=== PATIENT | male | born 1990 | race Caucasian/White ===

== ENCOUNTER 2021-01-19 04:39 | Emergency (ER) | payer OTHER ==
[~2021-01-19] VITALS: Ht 177.8 cm; Wt 90.0 kg
[2021-01-19] MEDS ORDERED: MAGNESIUM/ALUMINUM HYDROXIDE/SIMETHICONE 30ML UDC PO STA (05:25)
[2021-01-19] MEDS ORDERED: ONDANSETRON 4MG ODT PO ONE (05:30)
[2021-01-19 06:10] LABS: BASOPHILS % 0.5 % (0.0-2.0); EOSINOPHILS % 1.2 % (0.0-5.0); HEMATOCRIT. 45.1 % (42.0-52.0); HEMOGLOBIN. 15.3 g/dL (14.0-18.0); LYMPHOCYTES % 18.1 % (20.0-50.0); MEAN CORPUSCULAR HEMOGLOBIN 27.2 pg (28.0-32.0); MEAN PLATELET VOLUME 8.6 fl (7.4-10.4); MONOCYTES % 5.5 % (2.0-8.0); NEUTROPHILS % 74.7 % (40.0-76.0); PLATELET 207 x1000/uL (130-400); RED BLOOD CELL COUNT 5.64 mill/uL (4.7-6.1); RED CELL DISTRIBUTION WIDTH 13.1 % (11.6-14.6)
[2021-01-19 06:12] LABS: CHLORIDE 104 mEq/L (98-107)
[2021-01-19] MEDS ORDERED: ONDA4TAB5 MT (10:57)
[2021-01-19] MEDS ORDERED: IBUP-2029 MT (10:57)
[2021-01-19 11:40] VITALS: BP 126/74
== END 2021-01-19 12:04 | disposition home or self-care (01) ==
LOC: ER 04:39
DX: K80.20 Calculus of gallbladder without cholecystitis without obstruction (principal); I10 Essential (primary) hypertension; F41.9 Anxiety disorder, unspecified
CPT/HCPCS: 36415; 76705; 80053; 83690; 85025; 99284; Q0162

== ENCOUNTER 2024-05-05 02:13 | Emergency (ER) | payer OTHER ==
[~2024-05-05] VITALS: Ht 175.3 cm; Wt 78.0 kg
[~2024-05-05 02:13] MED LIST: IBUP-2029 MT; ONDA4TAB5 MT
[2024-05-05 02:36] VITALS: TEMP 98.5; O2SAT 99
[2024-05-05 02:59] LABS: BASOPHILS % 0.8 % (0.0-2.0); EOSINOPHILS % 2.3 % (0.0-5.0); HEMATOCRIT. 44.5 % (42.0-52.0); HEMOGLOBIN. 14.8 g/dL (14.0-18.0); LYMPHOCYTES % 28.2 % (20.0-50.0); MEAN CORPUSCULAR HEMOGLOBIN 27.2 pg (28.0-32.0); MEAN CORPUSCULAR HGB CONC 33.3 g/dL (31.0-37.0); MEAN CORPUSCULAR VOLUME 81.7 fL (80.0-94.0); MEAN PLATELET VOLUME 8.4 fl (7.4-10.4); MONOCYTES % 6.4 % (2.0-8.0); NEUTROPHILS % 62.3 % (40.0-76.0); PLATELET 198 x1000/uL (130-400); RED BLOOD CELL COUNT 5.45 mill/uL (4.7-6.1); RED CELL DISTRIBUTION WIDTH 13.6 % (11.6-14.6); WHITE BLOOD COUNT 6.8 x1000/uL (4.5-11.0)
[2024-05-05 03:04] LABS: CHLORIDE 107 mEq/L (98-107); POTASSIUM 3.4 mEq/L (3.5-5.1); SODIUM 138 mEq/L (136-145)
[2024-05-05 03:05] LABS: CALCIUM 9.6 mg/dL (8.7-10.4); CARBON DIOXIDE 23 mEq/L (21-32)
[2024-05-05 03:10] LABS: CREATININE 1.1 mg/dL (0.6-1.3); GLUCOSE 103 mg/dL (70-105); UREA NITROGEN BLOOD 17 mg/dL (9-23)
[2024-05-05 03:12] LABS: ALANINE AMINOTRANSFERASE 23 IU/L (10-49); ALBUMIN 4.5 g/dL (3.2-4.8); ASPARTATE AMINOTRANSFERASE 22 IU/L (<34)
[2024-05-05 03:13] LABS: BILIRUBIN TOTAL 0.4 mg/dL (0.1-1.0)
[2024-05-05] MEDS: KETOROLAC 30MG/ML VIAL IM ONE (03:19)
[2024-05-05] MEDS: MAGNESIUM/ALUMINUM HYDROXIDE/SIMETHICONE 30ML UDC PO ONE (03:19)
[2024-05-05 03:41] LABS: CLARITY URINE CLEAR (CLEAR); COLOR URINE YELLOW (YELLOW); GLUCOSE URINE NEGATIVE (NEGATIVE); KETONES URINE NEGATIVE (NEGATIVE); LEUKOCYTE ESTERASE URINE NEGATIVE (NEGATIVE); NITRITE URINE NEGATIVE (NEGATIVE); OCCULT BLOOD URINE NEGATIVE (NEGATIVE); PROTEIN URINE NEGATIVE (NEGATIVE); SPECIFIC GRAVITY URINE 1.008 (1.005-1.030); UROBILINOGEN URINE 0.2 E.U./dL (0.2-1.0)
[2024-05-05 03:48] LABS: *AMPHETAMINES SCREEN URINE NEGATIVE (NEGATIVE); *BENZODIAZEPINES SCREEN URINE NEGATIVE (NEGATIVE)
[2024-05-05 03:49] LABS: *BARBITURATES SCREEN URINE NEGATIVE (NEGATIVE); *COCAINE SCREEN URINE NEGATIVE (NEGATIVE); CANNABINOID URINE SCREEN NEGATIVE (NEGATIVE); ECSTASY MDMA SCREEN URINE NEGATIVE (NEGATIVE); METHADONE URINE SCREEN NEGATIVE (NEGATIVE); OPIATES URINE SCREEN NEGATIVE (NEGATIVE); PHENCYCLIDINE URINE SCREEN NEGATIVE (NEGATIVE)
[2024-05-05 04:14] LABS: ETHANOL BLOOD < 10 mg/dL (<10)
[2024-05-05] MEDS ORDERED: NAPR-679 MT (04:19)
[2024-05-05] MEDS ORDERED: FAMO-135 MT (04:19)
[2024-05-05] MEDS ORDERED: MAG355OR21 MT (04:19)
[2024-05-05] MEDS ORDERED: ACET-2708 MT (04:19)
[2024-05-05 04:25] VITALS: BP 126/91; PULSE 70; RESP 16; O2SAT 98
[2024-05-05 04:27] LABS: PROTEIN TOTAL 5.7 g/dL (6.0-8.3)
== END 2024-05-05 04:29 | disposition home or self-care (01) ==
LOC: ER 02:13
DX: K80.20 Calculus of gallbladder without cholecystitis without obstruction (principal); F41.9 Anxiety disorder, unspecified; Z79.899 Other long term (current) drug therapy
CPT/HCPCS: 80053; 80305; 81003; 80320; 83690; 85025; 36415; 71045; 96372; 99284; J1885; G0480